=== PATIENT | female | born 1995 | race Caucasian/White ===

== ENCOUNTER 2018-08-22 12:18 | Emergency (ER) | payer OTHER ==
--- NOTE | 2018-08-22 12:27 | ED Physician Documentation ---
PD HPI UPPER EXT INJURY - Stated complaint Stated Complaint: LT HAND LAC - History obtained from History obtained from: Patient - History of Present Illness Location: Left, Hand Type of injury: Laceration (jab injury from tip of knife into left hand near 4th head. Feeling pain in ring finger and into forearm with finger movement.) Where injury occurred: Work Timing - onset: Today Timing - details: Abrupt onset Worsened by: Moving, Palpating Associated symptoms: Tingling (side of ring finger). No: Weakness, Numbness Similar symptoms before: Has not had sx before Recently seen: Not recently seen Review of Systems Constitutional: denies: Fever, Chills, Myalgias Neurologic: denies: Focal weakness (but has pain with finger movement) PD PAST MEDICAL HISTORY - Past Medical History Endocrine/Autoimmune: None Musculoskeletal: None - Allergies Allergies/Adverse Reactions: Allergies Allergy/AdvReac Type Severity Reaction Status Date / Time acetaminophen [From Tylenol] Allergy Unknown Verified 08/22/18 12:34 ibuprofen Allergy Unknown Verified 08/22/18 12:34 unknown anestetic Allergy Unknown Uncoded 08/22/18 12:34 PD ED PE NORMAL - Vitals Vital signs reviewed: Yes - General General: Alert and oriented X 3, No acute distress, Well developed/nourished - Derm Derm: Normal color, Warm and dry - Extremities Extremities: Other (left hand with small 1 cm lac near head, minimal bleeding. Sensation in fingers is present with normal 2 point discrimination and sharp/dull discernment. Movement of the fingers is good, with pain on flexion of ring and middle fingers at the DIP. Strong flexion. ) Results - Vitals Vitals: Vital Signs - 24 hr 08/22/18 12:28 Temperature 36.5 C Heart Rate 72 Respiratory 14 Rate Blood Pressure 142/90 H O2 Saturation 97 Oxygen O2 Source Room air Procedures - Laceration (location) left hand Length in cm: 1 Wound type: Linear, Into subcut fat, Into muscle, Clean Neurovascular status: Sensory intact, Motor intact, Vascular intact Tendon involvement: Tendon intact, Tendon Injury (seems likely some injury to tendon, though wound not big enough to visualize, but flexion is strong but hurts.) Anesthesia: Lidocaine 1% with epi Wound Preparation: Irrigated copiously NS Skin layer closure: Nylon, Interrupted, Size #-0 - enter number (4), Sutures - enter # (2) Other: Patient tolerated well, No complications, Dressing applied, Tetanus booster given Complexity: Simple PD MEDICAL DECISION MAKING - ED course Complexity details: considered differential (seems like there is injury to the tendon, with the pain on movment, but is strong so not seeming lacerated. ), d/w patient Departure - Departure Disposition: 01 Home, Self Care Clinical Impression: Laceration of left palm Qualifiers: Encounter type: initial encounter Qualified Code(s): S61.412A - Laceration without foreign body of left hand, initial encounter Neuropraxia of left upper extremity Qualifiers: Encounter type: initial encounter Qualified Code(s): S44.92XA - Injury of unspecified nerve at shoulder and upper arm level, left arm, initial encounter Condition: Stable Record reviewed to determine appropriate education?: Yes Instructions: ED Laceration Hand Comments: Suture removal 7 to 8 days. It is okay to wash and shower. Clean off the wound twice a day with soap and water, or peroxide and water. Apply some antibiotic ointment to it to keep it moist. Also to watch for signs of infection such as purulence, redness or increasing pain. Return to your primary care or the ER at the specified time for suture removal. Naproxen as needed for pain. It does sound like there is some component of injury to the tendon. He does not seem to be cut through. He is a finger splint on the ring and middle fingers when working or doing activity for the next week. This will protected as its healing. You do not have that the splint on all the time. Recheck on the tendon and nerve function when you have this sutures removed. Forms: Activity restrictions Discharge Date/Time: 08/22/18 13:57
[2018-08-22 12:33] VITALS: BP 142/90
[2018-08-22] MEDS: TETANUS/DIPHTHERIA/PERTUSSIS 0.5 ML SYRINGE IM ONE (13:15)
[2018-08-22] MEDS: LIDOCAINE MPF 1%-EPI 1:200000 30 ML VIAL SUBQ STA (13:17)
== END 2018-08-22 13:57 | disposition home or self-care (01) ==
LOC: ED 12:18
DX: S61.412A Laceration without foreign body of left hand, initial encounter (principal); W26.0XXA Contact with knife, initial encounter; Y99.0 Civilian activity done for income or pay
CPT/HCPCS: 12001; 90471; 99282; 99283

== ENCOUNTER 2018-08-29 16:19 | Emergency (ER) | payer OTHER ==
[2018-08-29 16:25] VITALS: BP 134/85
--- NOTE | 2018-08-29 16:29 | ED Physician Documentation ---
PD HPI WOUND RECHECK - Stated complaint Stated Complaint: SUTURE REMOVAL - Chief complaint Chief Complaint: General - Histroy obtained from History obtained from: Patient - History of Present Illness Location: Right Upper Extremity (hand sutured a week ago, here for suture removal.) Timing - onset: How many weeks ago (1) Associated symptoms: Other (She has had CT of the head. She initially had had pain in the hand and palm with finger movement and that improved after couple of days. She had had initially some numbness on the side of her ring finger and that improved after a day or 2 as well. She has had good use of her hand without any pain limitation. She denies any infection.). No: Fever, Redness, Swelling Recently seen: Emergency Dept (1 week ago) Review of Systems Constitutional: denies: Fever Neurologic: denies: Focal weakness, Numbness PD PAST MEDICAL HISTORY - Past Medical History Endocrine/Autoimmune: None Psych: Depression Musculoskeletal: None - Past Surgical History Past Surgical History: No - Allergies Allergies/Adverse Reactions: Allergies Allergy/AdvReac Type Severity Reaction Status Date / Time acetaminophen [From Tylenol] Allergy Unknown Verified 08/22/18 12:34 ibuprofen Allergy Unknown Verified 08/22/18 12:34 Penicillins Allergy Emesis Verified 08/29/18 16:22 unknown anestetic Allergy Unknown Uncoded 08/22/18 12:34 - Social History Does the pt smoke?: No Smoking Status: Never smoker Does the pt drink ETOH?: Yes Does the pt have substance abuse?: No - Immunizations Immunizations: TDAP >10years/unknown PD ED PE NORMAL - Vitals Vital signs reviewed: Yes - General General: Alert and oriented X 3, No acute distress, Well developed/nourished - Derm Derm: Normal color, Warm and dry - Extremities Extremities: Other (Right palm with a sutured laceration with [address] She has good sensation and movement of the fingers without any pain or numbness. The wound does not show any signs of infection. The sutures are removed without any problems. A Band-Aid is applied.) Results - Vitals Vitals: Vital Signs - 24 hr 08/29/18 16:22 Temperature 36.6 C Heart Rate 70 Respiratory 16 Rate Blood Pressure 134/85 H O2 Saturation 100 Oxygen O2 Source Room air Departure - Departure Disposition: 01 Home, Self Care Clinical Impression: Encounter for removal of sutures Condition: Stable Record reviewed to determine appropriate education?: Yes Instructions: ED Wound Check Sutr Remove No Infec
== END 2018-08-29 16:44 | disposition home or self-care (01) ==
LOC: ED 16:19
DX: S61.411D Laceration without foreign body of right hand, subsequent encounter (principal)
CPT/HCPCS: 90471; 99281; 99282

== ENCOUNTER 2018-10-28 03:47 | Emergency (ER) | payer SELFPAY ==
--- NOTE | 2018-10-28 03:57 | ED Physician Documentation ---
PD HPI HEADACHE - Stated complaint Stated Complaint: HEADACHE - Chief complaint Chief Complaint: Neuro - History obtained from History obtained from: Patient - History of Present Illness Timing - onset: Last night Timing - duration: Hours Timing - details: Gradual onset, Still present, Constant Pain level now: 8 Worst headache ever?: No: Worst headache ever? Location: Global Quality: Throbbing, Aching Associated symptoms: Nausea, Vomiting. No: Fever, Stiff neck, Weakness, Numbness Improved by: Dark room, Quiet Worsened by: Light, Noise Similar symptoms before: Diagnosis (migraine) Recently seen: Not recently seen Review of Systems Constitutional: reports: Reviewed and negative Eyes: reports: Photophobia. denies: Loss of vision, Decreased vision GI: reports: Nausea, Vomiting. denies: Abdominal Pain Musculoskeletal: denies: Neck pain Neurologic: reports: Headache. denies: Generalized weakness, Focal weakness, Numbness PD PAST MEDICAL HISTORY - Past Medical History Past Medical History: Yes Cardiovascular: None Respiratory: None Neuro: Migraines Endocrine/Autoimmune: HyPOthyroidism GI: None WINDOWS VMWARE ENGINEER: None : None HEENT: None Psych: Depression, Bipolar disorder Musculoskeletal: None Derm: None Other Past Medical History: IBS - Past Surgical History Past Surgical History: Yes General: Appendectomy - Present Medications Home Medications: Ambulatory Orders Medication Instructions Recorded Confirmed Levothyroxine Sodium 50 mcg PO DAILY 10/28/18 10/28/18 Ondansetron Odt [Zofran] 4 mg TL Q6H PRN #10 tablet 10/28/18 Sertraline HCl [Zoloft] 100 mg PO DAILY 10/28/18 10/28/18 Sumatriptan Succinate [Imitrex] 50 mg PO ONCE PRN #20 tablet 10/28/18 oxyCODONE [Roxicodone] 5 - 10 mg PO Q6H PRN #14 tablet 10/28/18 - Allergies Allergies/Adverse Reactions: Allergies Allergy/AdvReac Type Severity Reaction Status Date / Time acetaminophen [From Tylenol] Allergy Unknown Verified 10/28/18 03:54 ibuprofen Allergy Unknown Verified 10/28/18 03:54 Penicillins Allergy Emesis Verified 10/28/18 03:54 unknown anestetic Allergy Unknown Uncoded 10/28/18 03:54 - Social History Does the pt smoke?: No Smoking Status: Never smoker Does the pt drink ETOH?: Yes Does the pt have substance abuse?: No - Immunizations Immunizations are current?: Yes Immunizations: TDAP >10years/unknown - POLST Patient has POLST: No PD ED PE NORMAL - Vitals Vital signs reviewed: Yes - General General: Alert and oriented X 3, No acute distress, Well developed/nourished - HEENT HEENT: PERRL, EOMI, Other (photophobia) - Neck Neck: Supple, no meningeal sign - Cardiac Cardiac: RRR, No murmur - Respiratory Respiratory: Clear bilaterally - Neuro Neuro: Alert and oriented X 3, 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 given 5mg oxycodone po prior to d/c for residual headache Departure - Departure Disposition: 01 Home, Self Care Clinical Impression: Migraine Qualifiers: Migraine type: without aura Status migrainosus presence: with status migrainosus Intractability: not intractable Qualified Code(s): G43.001 - Migraine without aura, not intractable, with status migrainosus Condition: Good Instructions: ED Headache Migraine Follow-Up: Maday Morin PA-C [Primary Care Provider] - Prescriptions: Ondansetron Odt [Zofran] 4 mg TL Q6H PRN #10 tablet PRN Reason: Nausea / Vomiting oxyCODONE [Roxicodone] 5 - 10 mg PO Q6H PRN #14 tablet PRN Reason: Headache Sumatriptan Succinate [Imitrex] 50 mg PO ONCE PRN #20 tablet PRN Reason: Headache Discharge Date/Time: 10/28/18 05:20
[2018-10-28] MEDS ORDERED: SUMAtriptan 6 MG/0.5 ML VIAL SUBQ STA (04:09)
[2018-10-28] MEDS ORDERED: oxyCODONE 5 MG TABLET PO STA (05:11)
[2018-10-28] MEDS ORDERED: ONDANSETRON ODT 4 MG Prepack 2 TL STA (05:11)
[2018-10-28 05:17] VITALS: BP 114/79
== END 2018-10-28 05:20 | disposition home or self-care (01) ==
LOC: ED 03:47
DX: G43.001 Migraine without aura, not intractable, with status migrainosus (principal)
CPT/HCPCS: 96372; 99283; 99284; A9270

== ENCOUNTER 2018-12-10 17:56 | Emergency (ER) | payer SELFPAY ==
--- NOTE | 2018-12-10 18:34 | ED Physician Documentation ---
PD HPI HEADACHE - Stated complaint Stated Complaint: SEVERE HEADACHE - Chief complaint Chief Complaint: Neuro - History obtained from History obtained from: Patient - History of Present Illness Timing - onset: How many days ago (4) Timing - details: Gradual onset Pain level now: 8 Location: Left Improved by: Nothing Worsened by: Light Similar symptoms before: Diagnosis (Migraines) Recently seen: Not recently seen - Additional information Additional information: This is a 23-year-old presents with complaints that she has had long-standing history of migraines since she was a teenager but has never been seen by urologist. She had a head CT she thinks when she was about 19 due to a syncopal episode. Typically she uses Imitrex and oxycodone for her headaches but this time it is not helping. The current headache is been there off and on for about 4 days but she had to call off work today because she was "frozen in pain" when she woke up this morning. She typically goes for chiropractic adjustments but is been a couple of weeks and she is been in for 1. This pain is typical of her migraine's left-sided behind the eye into the neck and also creeping over to the right side. She is rating it at an 8 out of 10. She has not eaten today but denies nausea and vomiting. Denies . She had a little blurry vision this morning but that has cleared up. Denies sore throat stuffy nose or coughing. Review of Systems Constitutional: denies: Fever Eyes: reports: Photophobia Ears: denies: Ear pain Nose: denies: Rhinorrhea / runny nose Throat: denies: Sore throat Respiratory: denies: Cough GI: reports: Nausea. denies: Vomiting : denies: Now EGA Skin: denies: Rash Musculoskeletal: denies: Neck pain, Back pain PD PAST MEDICAL HISTORY - Past Medical History Past Medical History: Yes Cardiovascular: None Respiratory: None Neuro: Migraines Endocrine/Autoimmune: HyPOthyroidism GI: None DIRECTOR OF ACQUISITIONS: None : None HEENT: None Psych: Depression, Bipolar disorder Musculoskeletal: None Derm: None - Past Surgical History Past Surgical History: Yes General: Appendectomy - Present Medications Home Medications: Ambulatory Orders Medication Instructions Recorded Confirmed Levothyroxine Sodium 50 mcg PO DAILY 10/28/18 10/28/18 Ondansetron Odt [Zofran] 4 mg TL Q6H PRN #10 tablet 10/28/18 Sertraline HCl [Zoloft] 100 mg PO DAILY 10/28/18 10/28/18 Sumatriptan Succinate [Imitrex] 50 mg PO ONCE PRN #20 tablet 10/28/18 oxyCODONE [Roxicodone] 5 - 10 mg PO Q6H PRN #14 tablet 10/28/18 - Allergies Allergies/Adverse Reactions: Allergies Allergy/AdvReac Type Severity Reaction Status Date / Time ibuprofen Allergy Unknown Verified 10/28/18 03:54 Penicillins Allergy Emesis Verified 10/28/18 03:54 unknown anestetic Allergy Unknown Uncoded 10/28/18 03:54 - Social History Does the pt smoke?: No Smoking Status: Never smoker Does the pt drink ETOH?: Yes Does the pt have substance abuse?: No - Immunizations Immunizations are current?: Yes Immunizations: TDAP >10years/unknown - POLST Patient has POLST: No PD ED PE NORMAL - Vitals Vital signs reviewed: Yes - General General: Alert and oriented X 3, No acute distress, Well developed/nourished - HEENT HEENT: Atraumatic, PERRL, EOMI, Moist mucous membranes, Pharynx benign - Neck Neck: Supple, no meningeal sign, No adenopathy, Thyroid normal - Cardiac Cardiac: RRR - Respiratory Respiratory: No respiratory distress - Derm Derm: Normal color, Warm and dry, No rash - Neuro Neuro: Alert and oriented X 3, 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 Reflexes are symmetrical at the quadriceps bilaterally.) - Psych Psych: Normal mood, Normal affect Results - Vitals Vitals: Vital Signs - 24 hr 12/10/18 12/10/18 12/10/18 17:58 18:01 19:52 Temperature 36.9 C Heart Rate 83 83 85 Respiratory 16 16 18 Rate Blood Pressure 120/70 120/70 125/91 H O2 Saturation 97 97 99 12/10/18 20:33 Temperature 36.8 C Heart Rate 76 Respiratory 16 Rate Blood Pressure 109/60 O2 Saturation 99 Oxygen O2 Source Room air PD MEDICAL DECISION MAKING - ED course Complexity details: re-evaluated patient, d/w patient ED course: Patient had an IV started she was given a liter of saline, 50 mg of Benadryl, 10 of Reglan and 10 of Decadron. On reevaluation she was sleeping soundly and stated that she thinks her headache is completely gone. She is discharged home with instructions to rest and follow-up as needed. Departure - Departure Disposition: Home, Self Care Clinical Impression: Headache Qualifiers: Headache type: unspecified Headache chronicity pattern: chronic headache Intractability: not intractable Qualified Code(s): R51 - Headache Condition: Good Instructions: ED Cephalgia Unspecified Follow-Up: Maday Morin PA-C [Primary Care Provider] - Comments: Home and rest. Follow-up with your doctor about continued headache. Discharge Date/Time: 12/10/18 20:36
[2018-12-10] MEDS ORDERED: diphenhydrAMINE INJ 50 MG/ML VIAL IVP STA (19:01)
[2018-12-10] MEDS ORDERED: SODIUM CHLORIDE 0.9% 1,000 ML IV ONE (19:01)
[2018-12-10] MEDS ORDERED: METOCLOPRAMIDE 10 MG/2 ML VIAL IVP STA (19:02)
[2018-12-10] MEDS ORDERED: DEXAMETHASONE 10 MG/ML VIAL IVP STA (19:03)
[2018-12-10 20:33] VITALS: BP 109/60
== END 2018-12-10 20:36 | disposition home or self-care (01) ==
LOC: ED 17:56
DX: R51 Headache (principal); Z86.69 Personal history of other diseases of the nervous system and sense organs
CPT/HCPCS: 96361; 96374; 99283; 99284; J1200; J2765

== ENCOUNTER 2018-12-31 16:37 | Emergency (ER) | payer SELFPAY ==
--- NOTE | 2018-12-31 17:24 | ED Physician Documentation ---
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 She was feeling lightheaded and kind of seeing white spots that she was being driven here. She never actually passed out and she says she felt fine before this started although she then later told me that yesterday she had been feeling suicidal but she felt safe because she was with her boyfriend she took her sertraline that she uses for bipolar a little bit later than normal and subsequently this morning she was feeling little "hypomanic". She denies using any other stimulants although she drinks regular coffee today. She did feel little nauseous and short of breath. She is having some light menstrual cramping and she started her menstrual cycle today. She says her and her boyfriend do not have actual intercourse but there is a possibility she could be . Denies history of polycystic ovarian syndrome. Says she drinks very minimal alcohol and denies use of any marijuana or other other illicit substances. She is not a smoker. She does have a history of hypothyroidism and is taking levothyroxine. She is also taking clindamycin for a dental infection. She denies diarrhea or vomiting. Review of Systems Constitutional: denies: Fever Eyes: denies: Loss of vision Ears: denies: Ear pain Nose: denies: Rhinorrhea / runny nose Throat: denies: Sore throat Cardiac: reports: Palpitations. denies: Chest pain / pressure Respiratory: reports: Dyspnea. denies: Cough GI: reports: Nausea. denies: Vomiting, Diarrhea : reports: LMP (onset today at 30 minutes after onset of symptoms). denies: Dysuria, Frequency Skin: denies: Rash Neurologic: reports: Generalized weakness, Near syncope. denies: Focal weakness, Numbness, Syncope, Confused, Altered mental status, Head injury, LOC Psychiatric: reports: Suicidal (Now resolved), Other (Has history of bipolar) Endocrine: reports: Other (History of hypothyroidism) Immunocompromised: denies: Immunocompromised PD PAST MEDICAL HISTORY - Past Medical History Past Medical History: Yes Cardiovascular: None Respiratory: None Neuro: Migraines Endocrine/Autoimmune: HyPOthyroidism GI: None MACHINIST SUPERVISOR OUTSIDE: None : None HEENT: None Psych: Depression, Bipolar disorder Musculoskeletal: None Derm: None - Past Surgical History Past Surgical History: Yes General: Appendectomy - Present Medications Home Medications: Ambulatory Orders Medication Instructions Recorded Confirmed Levothyroxine Sodium 50 mcg PO DAILY 10/28/18 12/31/18 Ondansetron Odt [Zofran] 4 mg TL Q6H PRN #10 tablet 10/28/18 12/31/18 Sertraline HCl [Zoloft] 100 mg PO DAILY 10/28/18 12/31/18 Sumatriptan Succinate [Imitrex] 50 mg PO ONCE PRN #20 tablet 10/28/18 12/31/18 oxyCODONE [Roxicodone] 5 - 10 mg PO Q6H PRN #14 tablet 10/28/18 12/31/18 - Allergies Allergies/Adverse Reactions: Allergies Allergy/AdvReac Type Severity Reaction Status Date / Time ibuprofen Allergy Unknown Verified 10/28/18 03:54 Penicillins Allergy Emesis Verified 10/28/18 03:54 unknown anestetic Allergy Unknown Uncoded 10/28/18 03:54 - Social History Does the pt smoke?: No Smoking Status: Never smoker Does the pt drink ETOH?: Yes Does the pt have substance abuse?: No - Immunizations Immunizations are current?: Yes Immunizations: TDAP >10years/unknown - POLST Patient has POLST: No PD ED PE NORMAL - Vitals Vital signs reviewed: Yes - General General: Alert and oriented X 3, No acute distress, Well developed/nourished - HEENT HEENT: Atraumatic, PERRL, EOMI, Moist mucous membranes, Pharynx benign - Neck Neck: Supple, no meningeal sign, No adenopathy, Thyroid normal - Cardiac Cardiac: RRR, No murmur, Strong equal pulses - Respiratory Respiratory: No respiratory distress, Clear bilaterally - Abdomen Abdomen: Normal bowel sounds, Soft, Non tender, Other (Obese) - Derm Derm: Normal color, Warm and dry, No rash - Extremities Extremities: No edema - Neuro Neuro: Alert and oriented X 3, informatics spec 2-12 intact, No motor deficit, No sensory deficit, Normal speech, Other (She is a little tremulous intermittently) - Psych Psych: Normal mood, Normal affect Results - Vitals Vitals: Vital Signs - 24 hr 12/31/18 12/31/18 12/31/18 16:51 16:59 17:06 Temperature 36.9 C Heart Rate 93 108 H 86 Respiratory 20 21 14 Rate Blood Pressure 156/101 H 154/94 H 145/93 H O2 Saturation 100 98 99 12/31/18 19:25 Temperature Heart Rate 83 Respiratory 17 Rate Blood Pressure 151/92 H O2 Saturation 100 Oxygen O2 Source Room air - EKG (time done) 1655 Rate: Rate (enter#) (107) Rhythm: Sinus tachycardia Intervals: Normal CO, Other (Narrow QRS) Ischemia: T wave inversion (III, aVF, V4-V6) - Labs Labs: Laboratory Tests 12/31/18 12/31/18 12/31/18 17:25 17:25 17:26 WBC 8.2 RBC 4.43 Hgb 13.6 Hct 40.7 MCV 91.9 MCH 30.7 MCHC 33.4 RDW 12.0 Plt Count 237 MPV 10.3 Neut # (Auto) 6.1 Lymph # (Auto) 1.5 [place] # (Auto) 0.5 Eos # (Auto) 0.0 Baso # (Auto) 0.0 Absolute Nucleated RBC 0.00 Nucleated RBC % 0.0 Sodium 138 Potassium 3.2 L Chloride 106 Carbon Dioxide 22 Anion Gap 10.0 BUN 13 Creatinine 0.7 Estimated GFR (MDRD) 105 Glucose 131 H Calcium 9.1 Magnesium 2.1 Total Bilirubin 0.7 AST 21 ALT 17 Alkaline Phosphatase 72 Total Protein 7.4 Albumin 4.2 Globulin 3.2 Albumin/Globulin Ratio 1.3 Lipase 39 TSH 2.47 Urine Color Urine Clarity Urine pH Ur Specific [place] Urine Protein Urine Glucose (UA) Urine Ketones Urine Occult Blood Urine Nitrite Urine Bilirubin Urine Urobilinogen Ur Leukocyte Esterase Urine RBC Urine WBC Ur Squamous Epith Cells Urine Bacteria Ur Microscopic Review Urine Culture Comments Urine HCG, Qual Urine Opiates Screen Ur Oxycodone Screen Urine Methadone Screen Ur Propoxyphene Screen Ur Barbiturates Screen Ur Tricyclics Screen Ur Phencyclidine Scrn Ur Amphetamine Screen U Methamphetamines Scrn U Benzodiazepines Scrn Urine Cocaine Screen U Cannabinoids Screen 12/31/18 12/31/18 18:24 18:24 WBC RBC Hgb Hct MCV MCH MCHC RDW Plt Count MPV Neut # (Auto) Lymph # (Auto) [place] # (Auto) Eos # (Auto) Baso # (Auto) Absolute Nucleated RBC Nucleated RBC % Sodium Potassium Chloride Carbon Dioxide Anion Gap BUN Creatinine Estimated GFR (MDRD) Glucose Calcium Magnesium Total Bilirubin AST ALT Alkaline Phosphatase Total Protein Albumin Globulin Albumin/Globulin Ratio Lipase TSH Urine Color YELLOW Urine Clarity HAZY Urine pH 5.5 Ur Specific [place] 1.010 1.010 Urine Protein NEGATIVE Urine Glucose (UA) NEGATIVE Urine Ketones NEGATIVE Urine Occult Blood MODERATE Urine Nitrite NEGATIVE Urine Bilirubin NEGATIVE Urine Urobilinogen 0.2 (NORMAL) Ur Leukocyte Esterase NEGATIVE Urine RBC 0-5 Urine WBC 0-3 Ur Squamous Epith Cells RARE Squamous Urine Bacteria Rare Ur Microscopic Review INDICATED Urine Culture Comments NOT INDICATED Urine HCG, Qual NEGATIVE Urine Opiates Screen NEGATIVE Ur Oxycodone Screen NEGATIVE Urine Methadone Screen NEGATIVE Ur Propoxyphene Screen NEGATIVE Ur Barbiturates Screen NEGATIVE Ur Tricyclics Screen NEGATIVE Ur Phencyclidine Scrn NEGATIVE Ur Amphetamine Screen NEGATIVE U Methamphetamines Scrn NEGATIVE U Benzodiazepines Scrn NEGATIVE Urine Cocaine Screen NEGATIVE U Cannabinoids Screen NEGATIVE PD MEDICAL DECISION MAKING - ED course Complexity details: reviewed results, d/w patient ED course: Patient's potassium was 3.2. She was given 40 mEq orally. She was not and her urinalysis was negative and drug screen negative. She had no episodes of SVT while here on our monitor and was feeling much better. Her boyfriend was at the bedside when I went in to discuss her results. She will be discharged home tonight with instructions to follow-up with your primary care provider to recheck her potassium level. If she experiences recurrent palpitations she should try and get a count on her heart rate. Follow-up as needed. Departure - Departure Disposition: 01 Home, Self Care Clinical Impression: Palpitations, Hypokalemia Condition: Good Instructions: ED Diet High Potassium, ED Palpitations Follow-Up: Maday Morin PA-C [Primary Care Provider] - Comments: Make sure the eat before you go to work tomorrow. Follow-up with your primary care provider to have your potassium retested. If you are experiencing what feels like rapid heart rate in the future try and check what your pulse rate actually is. Forms: Activity restrictions
[2018-12-31 17:51] LABS: BASOPHILS % (AUTO) 0.5 %; EOSINOPHILS % (AUTO) 0.2 %; HGB - HEMOGLOBIN 13.6 g/dL (12.0-16.0); LYMPHOCYTES # (AUTO) 1.5 10^3/uL (1.5-3.5); LYMPHOCYTES % (AUTO) 18.4 %; MEAN CORPUSCULAR HEMOGLOBIN 30.7 pg (27.0-31.0); MEAN CORPUSCULAR HGB CONC 33.4 g/dL (32.0-36.0); MEAN CORPUSCULAR VOLUME 91.9 fL (81.0-99.0); MEAN PLATELET VOLUME 10.3 fL (7.9-10.8); MONOCYTES # (AUTO) 0.5 10^3/uL (0.0-1.0); MONOCYTES % (AUTO) 5.7 %; NEUTROPHILS # (AUTO) 6.1 10^3/uL (1.5-6.6); PLT - PLATELET COUNT 237 10^3/uL (130-450); RED BLOOD COUNT 4.43 10^6/uL (4.20-5.40); WHITE BLOOD COUNT 8.2 x10^3/uL (4.8-10.8)
[2018-12-31 18:08] LABS: ALBUMIN 4.2 g/dL (3.2-5.5); ALBUMIN/GLOBULIN RATIO 1.3 (1.0-2.2); BILIRUBIN,TOTAL 0.7 mg/dL (0.2-1.0); CALCIUM 9.1 mg/dL (8.5-10.3); CREATININE 0.7 mg/dL (0.4-1.0); MAGNESIUM 2.1 mg/dL (1.7-2.8); TOTAL PROTEIN 7.4 g/dL (6.7-8.2)
[2018-12-31 18:51] LABS: MUDS CUTOFF CONCENTRATIONS CUTOFF CONC BELOW:
[2018-12-31 18:56] LABS: HCG UR QUAL NEGATIVE
[2018-12-31 18:58] LABS: BILIRUBIN,URINE NEGATIVE (NEGATIVE); CLARITY,URINE HAZY (CLEAR); KETONES,URINE (UA) NEGATIVE (NEGATIVE); LEUKOCYTE ESTERASE, URINE NEGATIVE (NEGATIVE); NITRITE,URINE NEGATIVE (NEGATIVE); OCCULT BLOOD,URINE MODERATE (NEGATIVE); PH,URINE 5.5 PH (5.0-7.5); PROTEIN,URINE NEGATIVE (NEGATIVE); UROBILINOGEN,URINE 0.2 (NORMAL) E.U./dL (NORMAL)
[2018-12-31 18:59] LABS: GLUCOSE, URINE (UA) NEGATIVE (NEGATIVE)
[2018-12-31] MEDS ORDERED: POTASSIUM CHLORIDE 20 MEQ TABLET PO ONE (19:10)
[2018-12-31 19:11] LABS: AMPHETAMINE SCREEN,URINE NEGATIVE (NEGATIVE); BENZODIAZEPINES SCREEN, URINE NEGATIVE (NEGATIVE); COCAINE SCREEN URINE NEGATIVE (NEGATIVE); METHADONE SCREEN, URINE NEGATIVE (NEGATIVE); METHAMPHETAMINES SCREEN, URINE NEGATIVE (NEGATIVE); OPIATE SCREEN, URINE NEGATIVE (NEGATIVE); OXYCODONE SCREEN, URINE NEGATIVE (NEGATIVE); PROPOXYPHENE SCREEN, URINE NEGATIVE (NEGATIVE); TRICYCLIC ANTIDEPRESSANT,URINE NEGATIVE (NEGATIVE)
[2018-12-31 19:17] LABS: BACTERIA,URINE Rare /HPF (None Seen); RBC,URINE 0-5 /HPF (0-5); SQUAMOUS EPITHELIAL CELL,UR RARE Squamous (<= Few)
[2018-12-31 19:25] VITALS: BP 151/92
== END 2018-12-31 19:46 | disposition home or self-care (01) ==
LOC: ED 16:37
DX: R00.0 Tachycardia, unspecified (principal); E87.6 Hypokalemia; E03.9 Hypothyroidism, unspecified
CPT/HCPCS: 36415; 81001; 81025; 83690; 83735; 93005; 99283; 99284; A9270; 80053; 80306; 81003; 84443; 85025; 87086

== ENCOUNTER 2019-05-15 20:52 | Emergency (ER) | payer SELFPAY ==
--- NOTE | 2019-05-15 21:44 | ED Physician Documentation ---
History of Present Illness - Stated complaint Stated Complaint: LT HAND PX - Chief complaint Chief Complaint: Trauma Ext - Additonal information Additional information: This is a 23-year-old female who presents with left hand pain. She states that several days ago she fell forward and she impacted her hand on a hard surface, she initially had pain around her palm of her hand but now it is mostly around the interphalangeal joint of her left thumb. She has been able to use it but it is painful and on occasion the pain shoots towards her forearm. She denies neck pain, denies trauma elsewhere on her body. No fever Review of Systems Constitutional: denies: Fever Skin: denies: Rash, Lesions Musculoskeletal: reports: Extremity pain PD PAST MEDICAL HISTORY - Past Medical History Cardiovascular: None Respiratory: None Neuro: Migraines Endocrine/Autoimmune: HyPOthyroidism GI: None MATERIAL LIAISON: None : None HEENT: None Psych: Depression, Bipolar disorder Musculoskeletal: None Derm: None - Past Surgical History Past Surgical History: Yes General: Appendectomy - Present Medications Home Medications: Ambulatory Orders Medication Instructions Recorded Confirmed Levothyroxine Sodium 50 mcg PO DAILY 10/28/18 12/31/18 Ondansetron Odt [Zofran] 4 mg TL Q6H PRN #10 tablet 10/28/18 12/31/18 Sertraline HCl [Zoloft] 100 mg PO DAILY 10/28/18 12/31/18 Sumatriptan Succinate [Imitrex] 50 mg PO ONCE PRN #20 tablet 10/28/18 12/31/18 oxyCODONE [Roxicodone] 5 - 10 mg PO Q6H PRN #14 tablet 10/28/18 12/31/18 - Allergies Allergies/Adverse Reactions: Allergies Allergy/AdvReac Type Severity Reaction Status Date / Time ibuprofen Allergy Unknown Verified 05/15/19 21:03 Penicillins Allergy Emesis Verified 05/15/19 21:03 unknown anestetic Allergy Unknown Uncoded 05/15/19 21:03 - Social History Does the pt smoke?: No Smoking Status: Never smoker Does the pt drink ETOH?: Yes Does the pt have substance abuse?: No - Immunizations Immunizations are current?: Yes Immunizations: TDAP >10years/unknown - POLST Patient has POLST: No PD ED PE NORMAL - Vitals Vital signs reviewed: Yes - General General: Alert and oriented X 3, No acute distress - HEENT HEENT: PERRL - Neck Neck: Supple, no meningeal sign - Cardiac Cardiac: RRR - Respiratory Respiratory: No respiratory distress - Derm Derm: Warm and dry - Extremities Extremities: Other (Hand is atraumatic in appearance, there is no snuffbox tenderness, the second through fifth fingers and metacarpals are nontender to palpation, the base of the thumb is nontender to palpation over the interphalangeal joint there is some tenderness. Patient is able to range her wrist without discomfort. Sensation intact to light touch over all digits, capillary refill brisk, radial and ulnar pulses 2+.) - Neuro Neuro: Alert and oriented X 3 - Psych Psych: Normal mood, Normal affect Results - Vitals Vitals: Vital Signs - 24 hr 05/15/19 05/15/19 05/15/19 21:00 21:01 23:41 Temperature 36.7 C 36.8 C 36.9 C Heart Rate 70 88 75 Respiratory 16 16 20 Rate Blood Pressure 122/69 133/77 H 116/88 H O2 Saturation 100 99 99 Oxygen O2 Source Room air - Rads (name of study) hand Radiology: Other (No acute osseous abnormality) PD MEDICAL DECISION MAKING - ED course ED course: X-ray shows no fracture, she has no snuffbox tenderness or signs of scaphoid fracture, her discomfort over the thumb is very mild and she has good range of motion of all joints. The brief episodes where the pain radiates towards her forearm may be related to irritation of the nerves in her hand, but she is wayne rologically intact and there are no signs of radiculopathy or neck injury. I discussed PCP follow-up, supportive care, RICE therapy, And return precautions. Patient was discharged home in good condition Departure - Departure Disposition: 01 Home, Self Care Clinical Impression: Hand pain, left Condition: Good Instructions: ED Contusion Hand Follow-Up: Provider,Other [Primary Care Provider] - Comments: Your x-ray does not show any broken bones, I think you likely have a contusion or bruising of the bone of your thumb. You may also have some irritation along the tendons of the thumb. Please continue to take Aleve, you may also add Tylenol 650 mg every 6 hours. Ice the thumb as well, and avoid any strenuous use of the hand for the next several days. Follow-up with your primary care provider Forms: Activity restrictions Discharge Date/Time: 05/15/19 23:42
--- NOTE | 2019-05-15 23:08 | XRAY Report ---
Reason: Fall on left hand, thumb pain Procedure Date: 05/15/2019 Accession Number: [id number] / [id number] Procedure: XR - Hand 3 View LT CPT Code: Final Report FULL RESULT: EXAM: LEFT HAND RADIOGRAPHY EXAM DATE: 05/15/2019 10:36 PM. CLINICAL HISTORY: Fall on left hand, thumb pain. COMPARISON: None. TECHNIQUE: 3 views. FINDINGS: Bones: No fractures or bone lesions. Joints: No subluxations. Soft Tissues: No soft tissue swelling. IMPRESSION: No acute fractures or malalignment. RADIA
[2019-05-15 23:42] VITALS: BP 116/88
== END 2019-05-15 23:42 | disposition home or self-care (01) ==
LOC: ED 20:52
DX: M79.642 Pain in left hand (principal); M79.645 Pain in left finger(s); W10.9XXA Fall (on) (from) unspecified stairs and steps, initial encounter
CPT/HCPCS: 99283; 99284

== ENCOUNTER 2021-12-23 10:47 | Emergency (ER) | payer MEDICAID, OTHER ==
[2021-12-23 11:03] VITALS: BP 140/106
--- NOTE | 2021-12-23 11:37 | ED Physician Documentation ---
PD HPI UPPER EXT INJURY - Stated complaint Stated Complaint: RT THUMB PX - Chief complaint Chief Complaint: Laceration - History obtained from History obtained from: Patient - History of Present Illness Location: Right, Finger (thumb tip) Where injury occurred: Home Timing - onset: Last night Timing - details: Abrupt onset, Still present (bled ongoing awhile last night and reopened and bled some when got up this morning.) Worsened by: Palpating Associated symptoms: No: Weakness, Numbness Similar symptoms before: Has not had sx before Review of Systems Skin: reports: Laceration (s) Neurologic: denies: Focal weakness, Numbness PD PAST MEDICAL HISTORY - Past Medical History Cardiovascular: None Respiratory: None Neuro: Migraines Endocrine/Autoimmune: HyPOthyroidism GI: None BOAT CARPENTER: None : None HEENT: None Psych: Depression, Bipolar disorder Musculoskeletal: None Derm: None - Past Surgical History Past Surgical History: Yes General: Appendectomy - Present Medications Home Medications: Ambulatory Orders Medication Instructions Recorded Confirmed Sertraline HCl [Zoloft] 100 mg PO DAILY 10/28/18 12/23/21 - Allergies Allergies/Adverse Reactions: Allergies Allergy/AdvReac Type Severity Reaction Status Date / Time acetaminophen Allergy Unknown Verified 12/23/21 11:03 ibuprofen Allergy Unknown Verified 10/06/19 21:46 Penicillins Allergy Emesis Verified 10/06/19 21:46 unknown anestetic Allergy Unknown Uncoded 10/06/19 21:46 - Social History Does the pt smoke?: No Smoking Status: Never smoker Does the pt drink ETOH?: Yes Does the pt have substance abuse?: No - Immunizations Immunizations are current?: Yes Immunizations: TDAP >10years/unknown - POLST Patient has POLST: No PD ED PE NORMAL - Vitals Vital signs reviewed: Yes - General General: Alert and oriented X 3, No acute distress, Well developed/nourished - Derm Derm: Normal color, Warm and dry - Extremities Extremities: Other (right thumb distal fat pad with 1 cm laceration to just at fatty tissue. Well demarcated and edges close proximity. No FB. No bleeding at this time. Does not involve nailbed. ) - Neuro Neuro: Alert and oriented X 3, No motor deficit, No sensory deficit Results - Vitals Vitals: Vital Signs - 24 hr 12/23/21 10:59 Temperature 36.4 C L Heart Rate 90 Respiratory 14 Rate Blood Pressure 140/106 H O2 Saturation 95 Oxygen O2 Source Room air PD MEDICAL DECISION MAKING - ED course Complexity details: considered differential (her concern was with recurrent bleeding and wound open. It did not need sutures per se. Used steri strips and Dermabond for it. ), d/w patient Departure - Departure Disposition: 01 Home, Self Care Clinical Impression: Thumb laceration Qualifiers: Encounter type: initial encounter Damage to nail status: without damage Foreign body presence: without foreign body Laterality: right Qualified Code(s): S61.011A - Laceration without foreign body of right thumb without damage to nail, initial encounter Condition: Stable Record reviewed to determine appropriate education?: Yes Instructions: ED Laceration Hand Follow-Up: Maday Morin PA-C [Primary Care Provider] - Comments: Keep the area clean and dry. Allow the Steri-Strips and glue to fall off on their own after several days. From then you should be able to use regular cleaning and ointment and Band-Aids. You can bandage over the Steri-Strips to protect them. You can do some use of the hand and thumb but try to avoid real firm pressure for a few days as the initial wound heals. Recheck if signs of infection. Tylenol ibuprofen as needed for pains. Forms: Activity restrictions Discharge Date/Time: 12/23/21 12:18
== END 2021-12-23 12:18 | disposition home or self-care (01) ==
LOC: ED 10:47
DX: S61.011A Laceration without foreign body of right thumb without damage to nail, initial encounter (principal); W25.XXXA Contact with sharp glass, initial encounter
CPT/HCPCS: 99282